=== PATIENT | female | born 1980 | race Caucasian/White ===

== ENCOUNTER → 2018-02-14 | Outpatient (CLI) | payer BC ==
[~2018-02-14] MED LIST: ATEN25; METHI10; NAPR500 PO; SYNTHROID0.2 MG PO; Zithromax250 MG PO
[2018-02-14 12:09] LABS: BASOPHILS ABSOLUTE AUTO 0.03 K/mm3 (0.00-0.23); BASOPHILS PERCENT AUTO 1 % (0-2); EOSINOPHILS ABSOLUTE AUTO 0.03 K/mm3 (0.00-0.68); EOSINOPHILS PERCENT AUTO 1 % (0-6); Hematocrit 44.5 % (33.0-51.0); Hemoglobin 15.2 g/dL (11.5-16.0); IMMATURE GRAN ABSOLUTE AUTO 0.02 K/mm3 (0.00-0.10); IMMATURE GRAN PERCENT AUTO 0 % (0-1); LYMPHOCYTES ABSOLUTE AUTO 2.73 K/mm3 (0.84-5.20); LYMPHOCYTES PERCENT AUTO 42 % (21-46); MONOCYTES ABSOLUTE AUTO 0.21 K/mm3 (0.16-1.47); MONOCYTES PERCENT AUTO 3 % (4-13); Mean Corpuscular HGB 31.5 pg (26.0-34.0); Mean Corpuscular HGB Conc 34.2 g/dL (31.5-36.5); Mean Corpuscular Volume 92 fL (80-100); Mean Platelet Volume 9.6 fL (9.1-12.4); NEUTROPHILS ABSOLUTE AUTO 3.56 K/mm3 (1.96-9.15); NEUTROPHILS PERCENT AUTO 54 % (41-73); Platelet Count 276 K/mm3 (150-400); RDW Coefficient Variation 13.6 % (11.7-14.2); RDW Standard Deviation 46.5 fL (35.1-46.3); Red Blood Cell Count 4.83 M/mm3 (3.80-5.20); White Blood Cell Count 6.58 K/mm3 (4.00-11.30)
[2018-02-14 12:31] LABS: Albumin, Blood 4.7 g/dL (3.4-5.0); Albumin/Globulin Ratio 1.2 (0.8-1.8); Bilirubin, Total 0.9 mg/dL (0.1-1.0); Bun/Creatinine Ratio 9.8 (12.0-20.0); Calcium, Blood 9.3 mg/dL (8.5-10.1); Creatinine, Blood 1.32 mg/dL (0.40-1.00); Free Thyroxine 0.19 ng/dL (0.70-1.60); Total Protein, Blood 8.7 g/dL (6.4-8.2)
[2018-02-14 12:36] LABS: Triiodothyronine, Free 0.93 pg/mL (2.18-3.98)
== END ==
LOC: LAB 11:45 → LAB SHORT 11:45
PROVIDERS: Nurse Practitioner Psychiatric/Mental Health
DX: E05.00 Thyrotoxicosis with diffuse goiter without thyrotoxic crisis or storm (principal); N92.6 Irregular menstruation, unspecified; R53.83 Other fatigue; R51 Headache; R11.0 Nausea
CPT/HCPCS: 80053; 84439; 84443; 84481; 85025

== ENCOUNTER → 2020-03-11 | Outpatient (CLI) | payer BC | END | disposition home or self-care (01) | LOC: LAB 07:37 → LAB SHORT 07:37 | DX: R11.0 Nausea (principal); R19.7 Diarrhea, unspecified; R10.9 Unspecified abdominal pain | CPT/HCPCS: 87015; 87045; 87046; 87177; 87205; 87209; 87899 ==

== ENCOUNTER → 2020-03-12 | Outpatient (CLI) | payer BC | END | disposition home or self-care (01) | LOC: LAB 07:37 → LAB SHORT 07:37 | DX: R11.0 Nausea (principal); R19.7 Diarrhea, unspecified; R10.9 Unspecified abdominal pain | CPT/HCPCS: 87177; 87209 ==

== ENCOUNTER → 2020-03-13 | Outpatient (CLI) | payer BC | END | disposition home or self-care (01) | LOC: LAB 08:10 → LAB SHORT 08:10 | DX: R10.9 Unspecified abdominal pain (principal); R19.7 Diarrhea, unspecified; R11.0 Nausea | CPT/HCPCS: 87177; 87209 ==

== ENCOUNTER 2020-05-17 04:12 | Inpatient (IN) | payer OTHER, BC ==
[~2020-05-17] VITALS: Ht 180.3 cm; Wt 88.5 kg
[2020-05-17 04:35] LABS: BASOPHILS ABSOLUTE AUTO 0.03 K/mm3 (0.00-0.23); BASOPHILS PERCENT AUTO 0 % (0-2); EOSINOPHILS PERCENT AUTO 0 % (0-6); Hematocrit 34.7 % (33.0-51.0); Hemoglobin 11.4 g/dL (11.5-16.0); IMMATURE GRAN ABSOLUTE AUTO 0.05 K/mm3 (0.00-0.10); IMMATURE GRAN PERCENT AUTO 0 % (0-1); LYMPHOCYTES ABSOLUTE AUTO 1.31 K/mm3 (0.84-5.20); LYMPHOCYTES PERCENT AUTO 10 % (21-46); MONOCYTES ABSOLUTE AUTO 0.52 K/mm3 (0.16-1.47); MONOCYTES PERCENT AUTO 4 % (4-13); Mean Corpuscular HGB 30.1 pg (26.0-34.0); Mean Corpuscular HGB Conc 32.9 g/dL (31.5-36.5); Mean Corpuscular Volume 92 fL (80-100); Mean Platelet Volume 9.6 fL (9.1-12.4); NEUTROPHILS PERCENT AUTO 86 % (41-73); Platelet Count 269 K/mm3 (150-400); RDW Coefficient Variation 14.6 % (11.7-14.2); RDW Standard Deviation 49.1 fL (35.1-46.3); Red Blood Cell Count 3.79 M/mm3 (3.80-5.20); White Blood Cell Count 13.51 K/mm3 (4.00-11.30)
[2020-05-17 04:49] LABS: International Normalized Ratio 1.07; Prothrombin Time Results 11.4 Sec (9.7-11.5)
[2020-05-17 05:01] LABS: Alanine Aminotransfer (ALT/SGP 47 U/L (12-78); Albumin, Blood 4.1 g/dL (3.4-5.0); Albumin/Globulin Ratio 1.1 (0.8-1.8); Alk Phos 67 U/L (50-136); Anion Gap 9 mmol/L (6-16); Aspartate Aminotrans (AST/SGOT 57 U/L (12-37); Beta HCG, Quantitative, Serum <1 mIU/mL (0-3); Bilirubin, Total 0.7 mg/dL (0.1-1.0); Blood Urea Nitrogen 9 mg/dL (8-24); Bun/Creatinine Ratio 8.5 (12.0-20.0); CO2, Blood 26 mmol/L (21-32); Calcium, Blood 8.8 mg/dL (8.5-10.1); Chloride, Blood 103 mmol/L (98-108); Creatinine, Blood 1.06 mg/dL (0.40-1.00); Ethanol (Alcohol), Blood, Med <3 mg/dL; Globulin, Blood 3.7 g/dL (2.2-4.0); Glomerular Filtration Rate >60 (60-); Glucose, Blood 119 mg/dL (70-99); Potassium, Blood 3.4 mmol/L (3.5-5.5); Sodium, Blood 138 mmol/L (136-145); Total Protein, Blood 7.8 g/dL (6.4-8.2)
--- NOTE | 2020-05-17 07:07 | NUR ---
TRANSFER FROM ED TO SURGICAL UNIT PT ARRIVED FROM ED VIA GURNEY AT 0635 TODAY W/BOYFRIEND AT BESIDE. PT TRANSFERRED BY SLIDER SHEET W/MAX ASSISTANCE. IS A/OX4 WITH VSS, ON RA. REPORTS PAIN ONESIMO. ECC/SWELLING TO LEFT EYE AND FACE. LEFT EYE COMPLETELY SWOLLEN SHUT; RIGHT PUPIL EQUAL, ROUND AND REACTIVE. DENIES N/T. ABLE TO WIGGLE FINGERS/TOES. DENIES CP OR SOB. ORIENTATED TO ROOM AND CALL LIGHT, PT VERBALIZED UNDERSTANDING. IVF INFUSING PER ORDERS. PT CURRENTLY RESTING IN BED WHILE VISITING WITH BOYFRIEND. HAS CALL LIGHT IN REACH. WILL CONT TO MONITOR AND GIVE REPORT TO ONCOMING RN.
--- NOTE | 2020-05-17 08:32 | NUR ---
A&O X3, S.O. AT BEDSIDE, DENIES ANY N/V, L EYE IS SWOLLEN SHUT W/ LARGE ORBITAL AND PERIORBITAL ECCHYMOSIS, REPORTS FEELING "SORE" ALL OVER WHEN MOVING, DENIES ANY H/A OR VISION CHANGES, UNABLE TO ASSESS L PUPIL DUE TO SWELLING, ABD SOFT W/ SLIGHT "SORENESS" ON R SIDE, DENIES ANY OTHER DISCOMFORT AT THIS TIME, CONT. TO MONITOR FOR ANY CHANGES, ICE TO L LEES AND L EYE AREA.
[2020-05-17 09:51] LABS: U Amphetamine Screen Not Detected; U Barbituate Screen Not Detected; U Benzodiazapine Screen Not Detected; U Buprenorphine Screen Not Detected; U Cannabinoids Screen DETECTED; U Cocaine Screen Not Detected; U Methadone Screen Not Detected; U Methamphetamine Screen Not Detected; U Opiates Screen Not Detected; U Oxycodone Screen Not Detected; U Phencyclidine Screen Not Detected; U Propoxyphene Screen Not Detected
[2020-05-17 09:52] LABS: U Amphetamine Screen Not Detected; U Barbituate Screen Not Detected; U Benzodiazapine Screen Not Detected; U Buprenorphine Screen Not Detected; U Cannabinoids Screen DETECTED; U Cocaine Screen Not Detected; U Methadone Screen Not Detected; U Methamphetamine Screen Not Detected; U Opiates Screen Not Detected; U Oxycodone Screen Not Detected; U Phencyclidine Screen Not Detected; U Propoxyphene Screen Not Detected
--- NOTE | 2020-05-17 10:53 | NUR ---
R WRIST SPLINT APPLIED, RLE PAS AND L FOOT PAS PLACED, PT TOLERATED WELL.
[2020-05-17 14:36] LABS: Source, Urine Clean Catch
[2020-05-17 14:51] LABS: Appearance, Urine Hazy (Clear); Bilirubin, Urine Neg (Neg); Blood, Urine 2+ (Neg); Color, Urine Yellow (P-Yellow); Glucose Qualitative, Urine Neg (Neg); Ketones, Urine 1+ (Neg); Leukocyte Esterase, Urine 3+ (Neg); Nitrite, Urine Neg (Neg); Protein, Urine 2+ (Neg); Specific Gravity, Urine 1.015 (1.003-1.022); Urobilinogen, Urine NORM (Normal)
[2020-05-17 14:59] LABS: White Blood Cells, Urine TNTC /hpf (0-5)
[2020-05-17 15:00] LABS: Bacteria Many /hpf; Squamous Epithelial Cells Few /hpf (Few)
--- NOTE | 2020-05-17 18:15 | NUR ---
SUMMARY REPORTS HAVING ADEQUATE PAIN CONTROL, NEURO CHECKS WNL, PT STATES ABLE TO OPEN L EYE SLIGHTLY, TOLERATED REGULAR DIET WELL, OOB W/ PT/OT TODAY, CONT. TO HAVE L HIP PAIN, PLAN FOR MRI TOMORROW PER DR. PAULINO, R ARM/HAND SPLINTED BY DR. PAULINO, VSS, VOIDED ONCE TODAY, IVF INFUSING, PT NOW TAKING IN MORE PO, BLADDER SCAN W/ 241CC, NO OTHER CHANGES THIS SHIFT.
[2020-05-18 05:18] LABS: Hematocrit 35.6 % (33.0-51.0); Hemoglobin 11.7 g/dL (11.5-16.0); Mean Corpuscular HGB 30.2 pg (26.0-34.0); Mean Corpuscular HGB Conc 32.9 g/dL (31.5-36.5); Mean Corpuscular Volume 92 fL (80-100); Mean Platelet Volume 9.9 fL (9.1-12.4); Platelet Count 213 K/mm3 (150-400); RDW Coefficient Variation 15.1 % (11.7-14.2); RDW Standard Deviation 50.9 fL (35.1-46.3); Red Blood Cell Count 3.88 M/mm3 (3.80-5.20); White Blood Cell Count 7.89 K/mm3 (4.00-11.30)
[2020-05-18 05:29] LABS: Anion Gap 7 mmol/L (6-16); Blood Urea Nitrogen 9 mg/dL (8-24); CO2, Blood 24 mmol/L (21-32); Chloride, Blood 109 mmol/L (98-108); Glomerular Filtration Rate >60 (60-); Glucose, Blood 90 mg/dL (70-99); Sodium, Blood 140 mmol/L (136-145)
--- NOTE | 2020-05-18 07:28 | NUR ---
PT TO IMAGING
--- NOTE | 2020-05-18 07:35 | NUR ---
PT HAD NO ACUTE CHANGES T/O NIGHT; NO NEURO CHANGES NOTED, VSS. LEFT EYE LESS SWOLLEN THIS AM, PT ABLE TO OPEN APPX HALF WAY. PT ABLE TO AMB W/SBA TO BATHROOM, LLE REMAINS PAINFUL, BUT PT IS ABLE TO BEAR WT. LEFT LEES TIGHT/SWOLLEN, CAP REFILL NWL, PT DENIED CHANGES IN SENSATION. RUE SPLINTED, CAP REFILL WNL. PAIN MGD W/PO PAIN MEDS AND LIDOCAINE PATCH W/REP RELIEF. PT OFF TO MRI THIS AM. REPORT GIVEN TO DAY RN.
--- NOTE | 2020-05-18 08:15 | NUR ---
RETURNED TO ROOM
--- NOTE | 2020-05-18 19:21 | NUR ---
SUMMARY PT REPORTS GENERALIZED BODY ACHES AND LEFT HIP IS SLIGHTLY MORE PAINFUL THAN OTHER PLACES. PT DENIES HEADACHE, ANY NUMBNESS OR TINGLING OR WEAKNESS, PT OOB WITH STANDBY ASSIST. MOVES SLOWLY BUT IS STEADY ON FEET. PT REPORTS PAIN IS ADEQUATELY CONTROLLED WITH MEDICATION. ONESIMO PO FOOD AND FLUIDS. PT ANTICIPATES DISCHARGE TOMORROW
--- NOTE | 2020-05-19 05:16 | NUR ---
SHIFT SUMMARY PT IS A/O X4. SBA UP TO BATHROOM. PAIN MANAGED WITH PO PAIN MED PER ORDERS. TOLERATING PO INTAKE W/O NAUSEA. SPLINT TO R LOWER ARM WNL; PT REPORTS SWELLING IN R ARM HAS GONE DOWN IN THE LAST 24 HOURS. DENIES N/T IN EXT. L EYE SWELLING ALSO GOING DOWN PER PT, ALTHOUGH IT IS STILL VERY BRUISED AND SWOLLEN. PT RESTING WITH CALL LIGHT IN REACH AT THIS TIME.
[2020-05-19] MEDS ORDERED: ACET325 PO (11:50)
[2020-05-19] MEDS ORDERED: OXAYDO5 M1 PO (11:51)
[2020-05-19] MEDS ORDERED: DOCU100 PO (11:51)
[2020-05-19] MEDS ORDERED: SENN187 PO (11:51)
[2020-05-19] MEDS ORDERED: ONDA4ODT MM (11:52)
--- NOTE | 2020-05-19 12:37 | NUR ---
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 DC INSTRUCTIONS PROVIDED. PT REP UNDERTANDING THOSE INSTRUCTIONS INCLUDING FU APPT WITH DR PAULINO AND PCP. 2 IV DC'D.
== END 2020-05-19 12:30 | disposition home or self-care (01) | DRG 562 ==
LOC: ER 04:12 → SURS 04:13 → ER 06:03 → SURS 06:03
PROVIDERS: Emergency Medicine; ADMIT Surgery
DX: S52.511A Displaced fracture of right radial styloid process, initial encounter for closed fracture (principal); S06.5X9A Traumatic subdural hemorrhage with loss of consciousness of unspecified duration, initial encounter; V49.9XXA Car occupant (driver) (passenger) injured in unspecified traffic accident, initial encounter; R40.2412 Glasgow coma scale score 13-15, at arrival to emergency department; E03.9 Hypothyroidism, unspecified; S05.12XA Contusion of eyeball and orbital tissues, left eye, initial encounter; S70.02XA Contusion of left hip, initial encounter
CPT/HCPCS: 36415; 70450; 70486; 71260; 72125; 73130; 73590; 73721; 74177; 80048; 80053; 81001; 83605; 83690; 84702; 85025; 85027; 85610; 86850; 86900; 86901; 87086; 92523; 96361; 96374; 96375; 96376; 97110; 97116; 97162; 97165; 97535; 99285-25; A9270; G0378; G0480; J1170; J2405; J3010; J7030; Q9967

== ENCOUNTER 2020-05-24 16:14 | Emergency (ER) | payer OTHER, BC ==
[~2020-05-24] VITALS: Ht 180.3 cm; Wt 122.5 kg
[~2020-05-24 16:14] MED LIST changes: +ACET325 PO; +DOCU100 PO; +ONDA4ODT MM; +OXAYDO5 M1 PO; +SENN187 PO
[2020-05-24] MEDS ORDERED: Roxicodone5 MG PO (17:09)
[2020-05-24] MEDS ORDERED: Zofran8 MG PO (17:09)
== END 2020-05-24 17:27 | disposition home or self-care (01) ==
LOC: ER 16:14
DX: S06.5X9A Traumatic subdural hemorrhage with loss of consciousness of unspecified duration, initial encounter (principal); S00.83XA Contusion of other part of head, initial encounter; S80.12XA Contusion of left lower leg, initial encounter; Z79.899 Other long term (current) drug therapy; V49.9XXA Car occupant (driver) (passenger) injured in unspecified traffic accident, initial encounter; Y92.410 Unspecified street and highway as the place of occurrence of the external cause
CPT/HCPCS: 70450; 99284-25